=== PATIENT | female | born 1995 | race Two or more races ===

== ENCOUNTER 2022-10-31 13:14 | Emergency (ER) | payer OTHER ==
[~2022-10-31] VITALS: Ht 167.6 cm; Wt 65.8 kg
[2022-10-31] MEDS ORDERED: MACRODANTIN100 M1 PO (16:28)
== END 2022-10-31 17:01 ==
LOC: ER 13:14
DX: N39.0 Urinary tract infection, site not specified (principal); Z91.012 Allergy to eggs; Z91.018 Allergy to other foods; Z91.013 Allergy to seafood